=== PATIENT | female | born 1985 | race Caucasian/White ===

== ENCOUNTER 2017-01-14 16:41 | Emergency (ER) | payer SELFPAY ==
[2017-01-14 17:01] VITALS: BP 98/66
[2017-01-14 17:11] VITALS: BMI 15.4
== END 2017-01-14 17:20 | disposition left against medical advice (07) ==
LOC: ER 17:04
DX: R51 Headache (principal)
CPT/HCPCS: 99281

== ENCOUNTER 2017-01-22 08:44 | Emergency (ER) | payer SELFPAY ==
[2017-01-22 08:51] VITALS: BP 140/84; BMI 18.3
[2017-01-22 09:36] LABS: BILIRUBIN,URINE NEGATIVE (NEGATIVE); BLOOD/HEMOGLOBIN,URINE 2+ (NEGATIVE); GLUCOSE, URINE NEGATIVE (NEGATIVE); KETONES,URINE NEGATIVE (NEGATIVE); LEUKOCYTE ESTERASE ,URINE 1+ (NEGATIVE); NITRITES,URINE POSITIVE (NEGATIVE); PH,URINE 6.5 (5.0 - 8.0); PROTEIN,URINE 1+ (NEGATIVE); UROBILINOGEN,URINE 1+ (NORMAL)
[2017-01-22 09:50] LABS: APPEARANCE,URINE CLOUDY (CLEAR); BACTERIA,URINE 4+ /HPF (NEGATIVE); COLOR,URINE YELLOW (YELLOW); SQUAMOUS EPITHELIAL CELL,UR FEW /HPF (NEGATIVE)
--- NOTE | 2017-01-22 09:59 | DR.GENAD ---
HPI - Complaint/Symptoms Chief Complaint:: PT. STATES LAST SUNDAY SHE HAD AN ABSCESS TO THE RIGHT SIDE OF HER CHEEK/JAW LINE AND NOW IT IS SCABBBED OVER. PT. STATES HER RIGHT EAR HAS BEEN HURTING. PT. SAYS "I THINK I HAVE A UTI. I'VE BEEN BURNING WHEN I PEE SINCE LAST SUNDAY AND MY LOWER BACK IS HURTING." PT. WAS SEEN AT [facility] LAST SUNDAY AND WAS TESTED FOR STREP AND IT WAS POSITIVE, NOT GIVEN MEDICINE BECAUSE PT. SIGNED OUT AMA. - Nurses notes reviewed Nurses Notes Review: Yes - Source History Provided: Patient - Mode of Arrival Mode of Arrival: Ambulatory - Timing Onset of Chief Complaint: 01/16/17 Came on: Suddenly - Duration Duration: Constant Duration: Days - Severity Severity: Moderate PMH - PMH Past Medical History: Yes Past Medical History: Anxiety Past Surgical History: Yes Surgical History: [employer] Surgery Past Surgical History Comment: TUBAL LIGATION - Family History History of Family Medical Conditions: Yes Family Medical History: Diabetes Mellitus, [place], Hypertension - Social History Does patient currently use any type of tobacco product: Yes Have you used tobacco products in the last 12 months: Yes Type of Tobacco Use: Cigarettes Does any household member use tobacco: No Alcohol Use: None Do you use any recreational Drugs:: No Lives With: Significant Other Lives Where: Home - infectious screening In the last 2 months have you had wt loss of >10#?: NO Have you had fever, night sweats or hemotysis?: No Have you traveled outside the country in the last 6 months?: No Isolation: Standard ROS - Review of Systems Constitutional: No Symptoms Reported. negative: Chills, Fever Eyes: negative: Eye Pain, Discharge ENTM: Mouth Pain (TRISMUS, SLIGHT.). negative: Ear Pain Respiratoy: No Symptoms Reported Cardiovascular: No Symptoms Reported Gastrointestinal/Abdominal: No Symptoms Reported Genitourinary: No Symptoms Reported Neurological: No Symptoms Reported Musculoskeletal: No Symptoms Reported Integumentary: Other (RT JAW RED AND TENDER. NO DRAINAGE.) PE - Vital Signs Vitals: Temperature 97.6 F Pulse Rate 84 Respiratory Rate 18 Blood Pressure [Left Arm] 125/71 Blood Pressure 140/84 O2 Sat by Pulse Oximetry 98 - General Limitations: No Limitations General Appearance: Alert - Head Head Exam: Other (CELLULITIS RIGHT JAW.. NO DRAINAGE.) - Eyes Eye exam: Normal Appearance - ENT ENT Exam: Normal External Ear Exam External Ear Exam: Normal External Inspection TM/Canal Exam: Bilateral Normal Nose Exam: Normal Nose Exam Mouth Exam: Normal Inspection Throat Exam: Normal Inspection - Neck Neck Exam: Trachea Midline - Chest Chest Inspection: Symmetric Chest Wall Rise - Respiratory Respiratory Exam: Normal Lung Sounds Bilat Respiratory Exam: Bilateral Clear to Auscultation - Cardiovascular Cardiovascular Exam: Regular Rate, Normal Rhythm, Normal Heart Sounds - Abdominal Exam Abdominal Exam: Normal Bowel Sounds, Soft. negative: Tenderness - Extremities Extremities Exam: Normal Inspection - Back Back Exam: Normal Inspection - Neurologic Neurological Exam: Alert, Oriented X3 - Psychiatric Psychiatric Exam: Normal Affect, Normal Mood - Skin Skin Exam: Erythema MDM - Additional Information Additional Information Obtained From: Family - Differential Diagnosis Differential Diagnosis: UTI, KIDNEY STONE, LOWER BACK PAIN, CELLULITIS, ABSCESS Course - Treatment Treatment: SEE ORDERS. - Education/Counseling Education/Counseling: Patient, Family, Education Educated On: Treatment, Diagnosis, Needs for Follow Up ROR - Labs Reviewed Laboratory Results Reviewed?: Yes Laboratory: 01/22/17 09:23 Urine,Clean Catch Urine Culture - Preliminary Specimen Type Clean catch urine 01/22/17 09:23 Urine Color Yellow (YELLOW) 01/22/17 09:23 Urine Appearance Cloudy (CLEAR) 01/22/17 09:23 Urine pH 6.5 (5.0 - 8.0) 01/22/17 09:23 Ur Specific [place] 1.015 (1.000-1.030) 01/22/17 09:23 Urine Protein 1+ (NEGATIVE) 01/22/17 09:23 Urine Glucose (UA) Negative (NEGATIVE) 01/22/17 09:23 Urine Ketones Negative (NEGATIVE) 01/22/17 09:23 Urine Occult Blood 2+ (NEGATIVE) 01/22/17 09:23 Urine Nitrite Positive (NEGATIVE) 01/22/17 09:23 Urine Bilirubin Negative (NEGATIVE) 01/22/17 09:23 Urine Urobilinogen 1+ (NORMAL) 01/22/17 09:23 Ur Leukocyte Esterase 1+ (NEGATIVE) 01/22/17 09:23 Urine RBC 5-10 /HPF (NEGATIVE) 01/22/17 09:23 Urine WBC 5-10 /HPF (NEGATIVE) 01/22/17 09:23 Ur Squamous Epith Cells Few /HPF (NEGATIVE) 01/22/17 09:23 Urine Bacteria 4+ /HPF (NEGATIVE) 01/22/17 09:23 Ur Culture Indicated? Yes/culture set up 01/22/17 09:23 - Diagnosis Discharge Problem: Abscess, Cellulitis Back pain Qualifiers: Back pain location: low back pain Chronicity: acute Back pain laterality: right Sciatica presence: without sciatica Qualified Code(s): M54.5 - Low back pain UTI (urinary tract infection) Qualifiers: Urinary tract infection type: urethritis Qualified Code(s): N34.2 - Other urethritis - Discharge Plan Disposition: HOME, SELF-CARE Condition: Stable Prescriptions: Acetaminophen with Codeine [Tylenol/Codeine #3 300-30 mg] 1 tab PO Q4-6H PRN # 12 tab PRN Reason: Pain Ibuprofen [MOTRIN TAB 600 MG *] 600 mg PO TID PRN #20 tab PRN Reason: Pain/Inflammation Sulfamethoxazole-Trimethoprim [BACTRIM DS TAB 800/160 MG *] 1 tab PO BID #20 tab - Follow ups/Referrals Follow ups/Referrals: [facility],None [Primary Care Provider] - 3 days - Instructions Instructions: Abscess, [id number], Cellulitis, Adult, [id number], Urinary Tract Infection, Adult, Back Pain, Adult, [id number] Additional Instructions: RETURN TO ED IF WORSE.
[2017-01-22] MEDS ORDERED: NITROGLYCERIN IV PREMIX 50 MG 50 MG/250 ML BAG IV PRN (10:36)
[2017-01-22] MEDS ORDERED: LOPRESSOR INJ 5 MG AMP IVP ONE (10:36)
== END 2017-01-22 10:23 | disposition home or self-care (01) ==
LOC: ER 09:02
DX: M27.2 Inflammatory conditions of jaws (principal); L03.211 Cellulitis of face; M54.5 Low back pain; M72.2 Plantar fascial fibromatosis; B96.29 Other Escherichia coli [E. coli] as the cause of diseases classified elsewhere
CPT/HCPCS: 81001; 87086; 87088; 87186; 99282; 99283

== ENCOUNTER 2017-02-19 08:48 | Emergency (ER) | payer OTHER ==
[2017-02-19 08:53] VITALS: BP 115/82; BMI 15.4
[2017-02-19] MEDS ORDERED: NORFLEX INJ IM ONE (09:31)
[2017-02-19] MEDS ORDERED: TORADOL 60 MG VIAL IM ONE (09:31)
--- NOTE | 2017-02-19 09:32 | DR.GENAD ---
HPI - PCP Primary Care Physician: mirian in [place] - HPI Comment HPI Comment: HISTORY BELOW. - Complaint/Symptoms Chief Complaint Doctors Comments: PAIN TAIL BONE DUE TO TRAUMA TO HER BACK 4 DAYS AGO. INCREASING PAIN SINCE. EAR PAIN BOTH EARS AND SORE BACK OF HER THROAT FOR FEW DAYS. PATIENT FEELING WORSE TODAY. NO FEVER OR DYSURIA. HAVING DIARRHEA TODAY. TWO LOOSE STOOLS SO FAR. Chief Complaint:: diarrhea for 4 days, sores in her mouth for 4 days, fell of a chair and landed on her back and buttocks 4 days ago. she also stated she has been having ear pain for 4 days - Nurses notes reviewed Nurses Notes Review: Yes - Source History Provided: Patient - Mode of Arrival Mode of Arrival: Ambulatory - Timing Onset of Chief Complaint: 02/15/17 Came on: Suddenly - Duration Duration: Constant Duration: Days - Severity Severity: Moderate PMH - PMH Past Medical History: Yes Past Medical History: Anxiety Past Surgical History: Yes Surgical History: HEEL ATTACHER WOOD Surgery - Family History History of Family Medical Conditions: Yes Family Medical History: Diabetes Mellitus, [place], Hypertension - Social History Does patient currently use any type of tobacco product: Yes Have you used tobacco products in the last 12 months: Yes Type of Tobacco Use: Cigarettes How many years tobacco product used: 15 Does any household member use tobacco: No Alcohol Use: None Do you use any recreational Drugs:: No Lives With: Family Lives Where: Home - infectious screening In the last 2 months have you had wt loss of >10#?: NO Have you had fever, night sweats or hemotysis?: No Have you traveled outside the country in the last 6 months?: No Isolation: Standard ROS - Review of Systems Constitutional: Weakness, Fatigue. negative: Chills, Fever Eyes: No Symptoms Reported ENTM: Ear Pain, Nose Discharge, Nose Congestion, Throat Pain. negative: Hearing Loss Respiratoy: Non-Productive Cough. negative: Short of Breath, Wheezing, Hemoptysis Cardiovascular: negative: Chest Pain Gastrointestinal/Abdominal: Diarrhea. negative: Abdominal Pain Genitourinary: negative: Dysuria, Frequency, Hematuria, Pain Neurological: Headache, Weakness. negative: Dizziness Musculoskeletal: Back Pain, Back (TAIL BONE AREA.) Integumentary: No Symptoms Reported Hematologic/Lymphatic: No Symptoms Reported Endocrine: No Symptoms Reported All Other Systems: Reviewed and Negative PE - Vital Signs Vitals: Temperature 98.9 F Pulse Rate 120 Respiratory Rate 16 Blood Pressure [Left Arm] 125/71 Blood Pressure 115/82 O2 Sat by Pulse Oximetry 99 - General Limitations: No Limitations General Appearance: Alert - Head Head Exam: Normal Inspection - Eyes Eye exam: Normal Appearance - ENT ENT Exam: Normal External Ear Exam External Ear Exam: Normal External Inspection TM/Canal Exam: Bilateral Erythema, Bilateral Canal Tenderness Nose Exam: Normal Nose Exam Mouth Exam: Normal Inspection Throat Exam: Tonsillar Erythema, Tonsillomegaly. negative: Tonsillar Exudate - Neck Neck Exam: Trachea Midline - Chest Chest Inspection: Symmetric Chest Wall Rise - Respiratory Respiratory Exam: Normal Lung Sounds Bilat Respiratory Exam: Bilateral Clear to Auscultation - Cardiovascular Cardiovascular Exam: Regular Rate, Normal Rhythm, Normal Heart Sounds - Abdominal Exam Abdominal Exam: Normal Bowel Sounds, Soft. negative: Tenderness - Extremities Extremities Exam: Normal Inspection - Back Back Exam: Paraspinal Tenderness (LOWER BACK. SACRUM AND COCCYX. ) - Neurologic Neurological Exam: Alert, Oriented X3 - Psychiatric Psychiatric Exam: Normal Affect, Normal Mood - Skin Skin Exam: Normal Color MDM - Differential Diagnosis Differential Diagnosis: EARACHE, THROAT PAIN, COCCYX CONTUSION, FX OR SPRAIN/ STRAIN Course - Treatment Treatment: SEE ORDERS. IM TORADOL AND NORFLEX IN ED. PAIN IMPROVED. - Education/Counseling Education/Counseling: Patient, Education Educated On: Treatment, Diagnosis, Needs for Follow Up ROR - XRAY XRAY Interpreted by: Radiologist XRAY Findings: REPORT DISCUSS WITH PATIENT. - Diagnosis Discharge Problem: Ear ache, Sore throat Contusion of coccyx Qualifiers: Encounter type: initial encounter Qualified Code(s): S30.0XXA - Contusion of lower back and pelvis, initial encounter Diarrhea Qualifiers: Diarrhea type: unspecified type Qualified Code(s): R19.7 - Diarrhea, unspecified - Discharge Plan Disposition: HOME, SELF-CARE Condition: Stable Prescriptions: Sulfamethoxazole-Trimethoprim [BACTRIM DS TAB 800/160 MG *] 1 tab PO BID #20 tab Tramadol HCl 50 mg PO Q8H PRN #15 tablet PRN Reason: - Follow ups/Referrals Follow ups/Referrals: [facility] [Primary Care Provider] - 3 days - Instructions Instructions: Musculoskeletal Pain, Sore Throat, [id number], Earache Additional Instructions: RETURN TO ED IF WORSE.
[2017-02-19] MEDS ORDERED: NORFLEX INJ ONE (09:34)
[2017-02-19] MEDS ORDERED: TORADOL 60 MG VIAL ONE (09:34)
--- NOTE | 2017-02-19 09:58 | RAD ---
Examination: Sacrum/coccyx, AP and lateral views History: Fell off chair Findings: There is no evidence for fracture, contour deformity or bone destruction. The presacral sof t tissues are normal. Sacroiliac joints are intact and symmetric. Impression: No acute injury identified. Reported By:
== END 2017-02-19 10:30 | disposition home or self-care (01) ==
LOC: ER 09:02
DX: S30.0XXA Contusion of lower back and pelvis, initial encounter (principal); H92.13 Otorrhea, bilateral; R19.7 Diarrhea, unspecified; J02.9 Acute pharyngitis, unspecified; W07.XXXA Fall from chair, initial encounter; Y92.9 Unspecified place or not applicable
CPT/HCPCS: 72220; 96372; 99282; J1885; J2360